=== PATIENT | male | born 1980 | race Caucasian/White ===

== ENCOUNTER 2016-09-28 21:31 | Emergency (ER) | payer BC ==
[~2016-09-28] VITALS: Ht 175.3 cm; Wt 77.1 kg
--- NOTE | 2016-09-28 21:45 | NUR ---
To bed 8 a 36 yo male bibself with c/o of lower abdominal pain, n/v for 15 hours and verbalized "im not able to keep anything down, im afraid im getting dehydrated." Per patient he was just recently diagnosed with bronchitis, and was advised by his doctor to take tamiflu but "cant just take it down." Patient is aaox4, ambulatory. Breathing even and unlabored. Skin warm and dry to touch. Gowned. Awaiting for er md rojas.
[2016-09-28] MEDS ORDERED: ONDANSETRON HCL/PF 4 MG/2 ML VIAL ONE (22:18)
[2016-09-28] MEDS ORDERED: IV SET PRIMARY 1 EA INFUS.SET MC ONE (22:18)
[2016-09-28] MEDS ORDERED: IV NS 0.9% 1,000 ML ONE (22:18)
[2016-09-28] MEDS ORDERED: IV NS 0.9% 1,000 ML BAG IV ONE (22:30)
[2016-09-28] MEDS ORDERED: ONDANSETRON HCL/PF 4 MG/2 ML VIAL IVP ONE (22:30)
--- NOTE | 2016-09-28 22:30 | NUR ---
started a saline lock on lac 18g, blood drawn, and sent to lab.
[2016-09-28 22:35] LABS: BASOPHILS % (AUTO) 0.1 % (0.0-2.0); HEMATOCRIT 43 % (39-51); HEMOGLOBIN 14.7 g/dL (13.5-17.5); LYMPHOCYTES # (AUTO) 0.4 /CMM (0.8-4.8); LYMPHOCYTES % (AUTO) 5.6 % (20.0-44.0); MEAN CORPUSCULAR HEMOGLOBIN 30 PG (26.0-33.0); MEAN CORPUSCULAR HGB CONC 34 g/dl (31.0-36.0); MEAN CORPUSCULAR VOLUME 87 fL (80-96); MONOCYTES # (AUTO) 0.7 /CMM (0.1-1.30); MONOCYTES % (AUTO) 9.1 % (2.0-12.0); NEUTROPHILS # (AUTO) 6.8 /CMM (1.8-8.9); NEUTROPHILS % (AUTO) 85.2 % (43.0-81.0); PLATELET COUNT (AUTO) 203 /CMM (150-450); RDW COEFFICIENT OF VARIATION 12.4 (11.5-15.0); RED BLOOD CELL COUNT(AUTO) 4.96 MIL/uL (4.5-6.0)
--- NOTE | 2016-09-28 22:35 | NUR ---
Medicated patient per orders.
[2016-09-28 22:50] LABS: CALCIUM, SERUM 8.6 mg/dL (8.5-10.1); CREATININE 1.2 mg/dL (0.6-1.3); POTASSIUM 4.1 mmol/L (3.5-5.1)
[2016-09-28 22:54] LABS: ALBUMIN 3.9 g/dL (3.4-5.0); BILIRUBIN,DIRECT 0.2 mg/dL (0.0-0.2); TOTAL PROTEIN, SERUM 7.6 g/dL (6.4-8.2)
--- NOTE | 2016-09-28 23:30 | NUR ---
Patient reported to feeling better, denies nausea. Lower abdomen is "slightly sore now."
[2016-09-28 23:41] LABS: APPEARANCE,URINE CLEAR (CLEAR); BILIRUBIN,URINE NEGATIVE (NEGATIVE); BLOOD, URINE 2+ Ery/uL (NEGATIVE); COLOR,URINE YELLOW (YELLOW); KETONES,URINE 1+ (NEGATIVE); LEUKOCYTE ESTERASE ,URINE NEGATIVE (NEGATIVE); NITRITE, URINE NEGATIVE (NEGATIVE); PROTEIN,URINE 1+ mg/dl (NEGATIVE); UGLUCOSE NEGATIVE (NEGATIVE)
--- NOTE | 2016-09-28 23:45 | NUR ---
IV removed. Catheter intact and site benign. Pressure and 4x4 applied to site. No bleeding noted. Patient discharged to home in stable condition. Written and verbal after care instructions given. Patient verbalizes understanding of instruction. Patient is ambulatory with steady gait.
[2016-09-28 23:51] LABS: ADD URINE CULTURE NO; BACTERIA,URINE None seen /HPF (None Seen); SQUAMOUS EPITHELIAL CELL,UR Few /HPF (None Seen); WBC,URINE 0-2 /HPF (0-3)
[2016-09-29 00:54] VITALS: BP 121/73
== END 2016-09-28 23:45 | disposition home or self-care (01) ==
LOC: ER 21:36
DX: A08.4 Viral intestinal infection, unspecified (principal); I10 Essential (primary) hypertension
CPT/HCPCS: 36415; 80048-TC; 80076-TC; 81000-TC; 83690-TC; 85025-TC; A4606; J2405; J7030; Z7610